=== PATIENT | male | born 1970 | race Caucasian/White ===

== ENCOUNTER 2016-10-25 13:25 | Emergency (ER) | payer BC ==
[2016-10-25 13:32] VITALS: BP 130/88
--- NOTE | 2016-10-25 14:05 | ERNOTE ---
Lower Extremity HPI - Narrative Date of Service: 10/25/16 - General Lower Extremities Pain: 2nd toe: right Time Seen by Provider: 10/25/16 13:30 Source: patient, RN notes reviewed Exam Limitations: no limitations - Immun/Allergies/Home Medications Immunizations: IMMUNIZATION HX History of Influenza Vaccine No Hx Pneumococcal Vaccination No Allergies/Adverse Reactions: Allergies Allergy/AdvReac Type Severity Reaction Status Date / Time No Known Allergies Allergy Verified 05/14/15 12:58 Home Medications: HOME MEDICATIONS NK [No Home Medication] 10/25/16 [Last Taken Unknown] - History of Present Illness Narrative: 46 y/o male ambulatory to the ED for pain in his right 2nd toe. He stubbed the toe on a rock last night. He reports that the toe was deformed and he immediately pulled it back into place. He is having mild ecchymosis and swelling today. He denies any prior injuries to the extremity. Occurred: yesterday Location of Incident: home Method of Injury: Reports: direct blow Associated Symptoms: Denies: unable to bear weight, snapping, popping sensation Other Injuries: Reports: none Subsequent Symptoms: Denies: sensory loss, numbness, motor loss Review of Systems - Review of Systems Constitutional: Absent: recent illness, fever, malaise EYE: Present: no symptoms reported ENT: Present: no symptoms reported Respiratory: Present: no symptoms reported Cardiology: Present: no symptoms reported Gastrointestinal/Abdominal: Present: no symptoms reported Genitourinary: Present: no symptoms reported Musculoskeletal: Present: joint pain, joint swelling Skin: Present: change in color. Absent: lesions, lumps Neurological: Absent: weakness, numbness, tingling Endocrine: Present: no symptoms reported Hematologic/Lymphatic: Absent: easy bruising, easy bleeding Psych: Present: no symptoms reported - Patient's Past Medical History Patient History - Medical: No pertinent hx Patient History - Cardiac/Respiratory: No pertinent hx Patient History - Cancer: No Hx of Cancer Patient History - Surgical Procedures: Other Patient History - Other: None - Social History Living Situations: home Abuse History: No History of abuse Psych History: No pertinent hx Smoking Status: Never smoker Have you smoked in the past 12 months: No Alcohol Use: rarely Drug Use: none - Immunizations Hx Pneumococcal Vaccination: No History of Influenza Vaccine: No Physical Exam - Physical Exam General Appearance: Present: wd/wn, alert, no apparent distress Respiratory: Present: no respiratory distress, no accessory muscle use Cardiovascular/Chest: Present: normal peripheral pulses Peripheral Pulses: N=norm/S=strong/W=weak/B=bound/A=absent: Dorsalis-pedis (R): Strong Extremity Exam: Present: decreased range of motion - Right 2nd toe, bony tenderness - Right 2nd toe, extremity edema - mild, with ecchymosis to right 2nd toe, no deformity. Absent: joint redness Neurological Exam: Present: alert, oriented, normal mood/affect, no motor/ sensory deficits Skin Exam: Present: normal color, warm/dry ED Progress - Vital Signs Patient's Vital Signs:: I have reviewed the patient's vital signs. Vital Signs: Vital Signs 10/25/16 13:29 Temperature 36.6 C Pulse Rate 92 Respiratory 12 Rate Blood Pressure 130/88 O2 Sat by Pulse 95 Oximetry - X-Ray X-Ray #1 X-Ray: foot Interpretation: Reviewed by me X-ray Comments: Nondisplaced fracture of right 2nd proximal phalanx - Progress/Reassessment Chief Complaint: Foot Injury/Pain Progress:: Unchanged Procedures Location: Right 2nd toe Hand-Made Type: Right 2nd toe keke taped to 3rd toe Alignment good: Yes Splint applied by: MLP Post-Proc Neuro Vasc Exam: normal Complications: Pt jaquan procedure well Departure Clinical Impression: Toe fracture Qualifiers: Encounter type: initial encounter Toe: lesser toe Fracture type: closed Phalanx : proximal Fracture alignment: nondisplaced Laterality: right Qualified Code(s) : S92.514A - Nondisplaced fracture of proximal phalanx of right lesser toe(s), initial encounter for closed fracture - Departure Disposition: Home self-care Condition: Good Instructions: Toe Fracture Additional Instructions: Keep keke taped until pain improves Ice and elevate when able Tylenol for pain Referrals: Travis Espinoza MD [Primary Care Provider] -
== END 2016-10-25 14:08 | disposition home or self-care (01) ==
LOC: ER 13:25
DX: S92.514A Nondisplaced fracture of proximal phalanx of right lesser toe(s), initial encounter for closed fracture (principal); W22.8XXA Striking against or struck by other objects, initial encounter; Y92.009 Unspecified place in unspecified non-institutional (private) residence as the place of occurrence of the external cause